=== PATIENT | male | born 1955 | race American Indian/Alaskan Native ===

== ENCOUNTER 2021-08-23 21:21 | Emergency (ER) | payer MEDICARE ==
--- NOTE | 2021-08-23 22:30 | Cat Scan Report ---
CT head/brain wo con INDICATION: fall. Head pain TECHNIQUE: All CT scans at this location are performed using CT dose reduction for ALARA by means of automated e xposure control. COMPARISON: None available. FINDINGS: There is no evidence of hemorrhage, hydrocephalus, brain edema, or mass effect/mass lesion. There is overall normal brain formation and brain volume for the patient's age. Ventricular and cisternal/sulc al size is normal for age. There is mild cerebral white matter hypoattenuation suggesting mild chroni c small vessel ischemic change. The included paranasal sinuses and mastoid air cells are clear. The o rbits appear unremarkable. IMPRESSION: 1. No acute intracranial abnormality. Signer Name: Tj Kat MD Signed: 08/23/2021 10:26 PM Workstation Name: [id number]
--- NOTE | 2021-08-23 22:32 | Cat Scan Report ---
CT chest wo con INDICATION: fall. Chest pain TECHNIQUE: All CT scans at this location are performed using CT dose reduction for ALARA by means of automated e xposure control. COMPARISON: None available. FINDINGS: There are tiny bilateral pleural effusions. There is no acute pulmonary parenchymal abnormality. The heart is mildly enlarged globally. There is moderate coronary artery atherosclerotic calcification. There are no appreciable acute rib fractures. In the upper abdomen, multiple bilateral renal cysts ar e seen. There is a left adrenal myelolipoma. IMPRESSION: 1. No acute fractures identified in the chest. 2. Tiny bilateral pleural effusions and mild cardiomegaly. Signer Name: Tj Kat MD Signed: 08/23/2021 10:27 PM Workstation Name: [id number]
--- NOTE | 2021-08-23 22:33 | Cat Scan Report ---
CT CERVICAL SPINE WITHOUT CONTRAST INDICATION: fall. Neck pain TECHNIQUE: Axial CT images of the spine were obtained. Sagittal and coronal reformatted images were produced. Al l CT scans at this location are performed using CT dose reduction for ALARA by means of automated exp osure control. COMPARISON: None available. FINDINGS: ACUTE FRACTURE(S) OR SUBLUXATION: None. SPINAL DEGENERATIVE CHANGES: There is mild degenerative disc disease at C3-4 and C6-7. There is also moderate degenerative change at the atlantodental articulation. PARASPINAL SOFT TISSUES: No soft tissue swelling or other acute abnormalities. ADDITIONAL FINDINGS: No significant additional findings. IMPRESSION: 1. No acute fracture or subluxation in the spine in neutral position. Signer Name: Tj Kat MD Signed: 08/23/2021 10:28 PM Workstation Name: [id number]
--- NOTE | 2021-08-23 23:09 | Emergency Department Report ---
ED Fall HPI - General Chief Complaint: Head Injury Stated Complaint: FALL Time Seen by Provider: 08/23/21 21:34 Source: patient, EMS Mode of arrival: Stretcher - History of Present Illness Initial Comments: FROM LONG-TERM. SUSTAINED A GROUND LEVEL FALL HIT HEAD. NOW REPORTING HEADACHE AND BLURRED VISION. pt had dialysis today and at long-term he had a fall while moving , -: Sudden, hour(s) Fall From: out of bed When Fall Occurred: 1-[address] Fall Occurred: long-term/SNF Loss of Consciousness: yes Prolonged Down Time?: no Location: head, chest Severity scale (0 -10): 2 Quality: dull Associated Symptoms: headache. denies: denies, neck pain, numbness, weakness, chest paint, abdominal pain - Related Data Previous Rx's Medication Instructions Recorded Last Taken Type ALBUTEROL NEB's [Proventil 0.083% 2.5 mg IH Q4HRT PRN nebu 08/08/21 Unknown Rx NEBS] Amiodarone [Cordarone 200 MG TAB] 200 mg PO BID tablet 08/08/21 Unknown Rx Apixaban [Eliquis] 5 mg PO Q12HR tablet 08/08/21 Unknown Rx Epoetin Florin-Epbx 10,000 Unit 10,000 unit SUB-Q OPAL PRN vial 08/08/21 Unknown Rx [Retacrit] Insulin NPH/Regular [NovoLIN 70/30] 5 unit SUB-Q BIDDIAB units 08/08/21 Unknown Rx Lispro Insulin [HumaLOG] 0 unit SUB-Q ACHS units 08/08/21 Unknown Rx Metoprolol [Lopressor TAB] 200 mg PO BID tablet 08/08/21 Unknown Rx Pantoprazole [Protonix TAB] 20 mg PO QDAC tablet. 08/08/21 Unknown Rx lisinopriL [Zestril TAB] 5 mg PO QDAY tablet 08/08/21 Unknown Rx Allergies Allergy/AdvReac Type Severity Reaction Status Date / Time No Known Allergies Allergy Verified 07/10/21 16:07 ED Review of Systems ROS: Stated complaint: FALL Other details as noted in HPI Constitutional: denies: chills, fever Eyes: denies: eye pain, eye discharge, vision change ENT: denies: ear pain, throat pain Respiratory: denies: cough, shortness of breath, wheezing Cardiovascular: denies: chest pain, palpitations Endocrine: no symptoms reported Gastrointestinal: denies: abdominal pain, nausea, diarrhea Genitourinary: denies: urgency, dysuria Musculoskeletal: denies: back pain, joint swelling, arthralgia Skin: denies: rash, lesions Neurological: denies: headache, weakness, paresthesias Psychiatric: denies: anxiety, depression Hematological/Lymphatic: denies: easy bleeding, easy bruising ED Past Medical Hx - Past Medical History Previous Medical History?: Yes Hx Hypertension: Yes Hx Heart Attack/AMI: No (EF 20-25%) Hx Diabetes: Yes Hx Liver Disease: No Hx Renal Disease: Yes (AV FISTULA. ON DIALYSIS) - Surgical History Past Surgical History?: Yes Hx Pacemaker: No Hx Internal Defibrillator: No Additional Surgical History: LEFT AV FISTULA - Social History Smoking Status: Never Smoker - Medications Home Medications: Home Medications Medication Instructions Recorded Confirmed Last Taken Type ALBUTEROL NEB's [Proventil 0.083% 2.5 mg IH Q4HRT PRN nebu 08/08/21 Unknown Rx NEBS] Amiodarone [Cordarone 200 MG TAB] 200 mg PO BID tablet 08/08/21 Unknown Rx Apixaban [Eliquis] 5 mg PO Q12HR tablet 08/08/21 Unknown Rx Epoetin Florin-Epbx 10,000 Unit 10,000 unit SUB-Q OPAL PRN vial 08/08/21 Unknown Rx [Retacrit] Insulin NPH/Regular [NovoLIN 70/30] 5 unit SUB-Q BIDDIAB units 08/08/21 Unknown Rx Lispro Insulin [HumaLOG] 0 unit SUB-Q ACHS units 08/08/21 Unknown Rx Metoprolol [Lopressor TAB] 200 mg PO BID tablet 08/08/21 Unknown Rx Pantoprazole [Protonix TAB] 20 mg PO QDAC tablet.dr 08/08/21 Unknown Rx lisinopriL [Zestril TAB] 5 mg PO QDAY tablet 08/08/21 Unknown Rx ED Physical Exam - General Limitations: No Limitations General appearance: alert, in no apparent distress - Head Head exam: Present: atraumatic, normocephalic - Eye Eye exam: Present: normal appearance - ENT ENT exam: Present: mucous membranes moist - Neck Neck exam: Present: normal inspection - Respiratory Respiratory exam: Present: chest wall tenderness. Absent: respiratory distress - Cardiovascular Cardiovascular Exam: Present: regular rate, normal rhythm. Absent: systolic murmur, diastolic murmur, rubs, gallop - GI/Abdominal GI/Abdominal exam: Present: soft, normal bowel sounds - Rectal Rectal exam: Present: deferred - Extremities Exam Extremities exam: Present: normal inspection - Back Exam Back exam: Present: normal inspection - Neurological Exam Neurological exam: Present: alert, oriented X3 - Psychiatric Psychiatric exam: Present: normal affect, normal mood - Skin Skin exam: Present: warm, dry, intact, normal color. Absent: rash ED Course Vital Signs 08/23/21 08/23/21 21:25 21:46 Temperature 98.7 F Pulse Rate 90 82 Respiratory 18 17 Rate Blood Pressure 130/70 O2 Sat by Pulse 99 100 Oximetry ED Medical Decision Making - Radiology Data Radiology results: report reviewed, image reviewed - Medical Decision Making CTs head neck and chest are negative for fractures Critical care attestation.: If time is entered above; I have spent that time in minutes in the direct care of this critically ill patient, excluding procedure time. ED Disposition Clinical Impression: Fall, Head injury, Chest wall contusion Disposition: 01 HOME / SELF CARE / HOMELESS Is pt being admited?: No Does the pt Need Aspirin: No Condition: Stable Instructions: Contusion, [id number], Blunt Chest Trauma Referrals: PRIMARY CARE,MD [Primary Care Provider] - 3-5 Days
[2021-08-24 02:29] VITALS: BP 103/73
== END 2021-08-24 02:27 | disposition home or self-care (01) ==
LOC: ED 21:21
DX: S20.219A Contusion of unspecified front wall of thorax, initial encounter (principal); S09.90XA Unspecified injury of head, initial encounter; I10 Essential (primary) hypertension; E11.9 Type 2 diabetes mellitus without complications; N28.9 Disorder of kidney and ureter, unspecified; Z79.899 Other long term (current) drug therapy; Z98.890 Other specified postprocedural states; W19.XXXA Unspecified fall, initial encounter; Y93.89 Activity, other specified; Y92.89 Other specified places as the place of occurrence of the external cause; Y99.8 Other external cause status
CPT/HCPCS: 70450; 71250; 72125; 99285